=== PATIENT | female | born 1985 | race Caucasian/White ===

== ENCOUNTER 2016-06-09 11:40 | Emergency (ER) | payer OTHER ==
[~2016-06-09] VITALS: Ht 157.5 cm; Wt 50.8 kg
[2016-06-09 12:31] LABS: PREGNANCY TEST URINE QUAL NEGATIVE (NEGATIVE)
[2016-06-09 12:35] LABS: KETONES,URINE 1+ (NEGATIVE); LEUKOCYTE ESTERASE ,URINE TRACE (NEGATIVE); PH,URINE 6.5 (5.0-8.0)
[2016-06-09 12:37] LABS: ADD UA MICROSCOPIC YES
[2016-06-09 12:59] VITALS: BP 118/80
[2016-06-09 13:08] LABS: RBC,URINE TOO NUMEROUS TO COUN /HPF (0-2)
[2016-06-09 13:09] LABS: ADD URINE CULTURE YES; WBC,URINE 0-2 /HPF (0-3)
== END 2016-06-09 13:01 | disposition home or self-care (01) ==
LOC: ER 11:43
DX: N39.0 Urinary tract infection, site not specified (principal)
CPT/HCPCS: 81001; 84703; 87086; 99284; A4606; Z7610; 81000-TC